=== PATIENT | male | born 1980 | race Caucasian/White ===

== ENCOUNTER 2019-01-13 18:41 | Emergency (ER) | payer BC ==
[~2019-01-13] VITALS: Ht 172.7 cm; Wt 99.8 kg
[2019-01-13 18:42] VITALS: Ht 172.7 cm; Wt 99.8 kg
[2019-01-13 19:40] LABS: BASOPHIL % 0.5 % (0-2); PLATELET COUNT 257 x10^3mcL (130-400)
[2019-01-13 19:42] LABS: RED CELL DISTRIBUTION WIDTH 16.3 % (11.5-14.5)
[2019-01-13 20:01] LABS: microscopic required? NO
[2019-01-13 20:27] LABS: CARBON DIOXIDE 29.4 mmol/L (21-32); CHLORIDE SERUM 101 mmol/L (98-107); CREATININE SERUM 1.2 mg/dL (0.7-1.3); GFR1 > 60 mL/min; GLUCOSE SERUM 166 mg/dL (74-106); POTASSIUM SERUM 3.8 mmol/L (3.5-5.1); SODIUM SERUM 139 mmol/L (136-145)
[2019-01-13 20:39] LABS: ALKALINE PHOSPHATASE 120 U/L (46-116); ALT/SGPT 30 U/L (16-63); AST/SGOT 26 U/L (15-37); BILIRUBIN TOTAL 0.3 mg/dL (0.20-1.00); LIPASE 230 IU/L (73-393); MAGNESIUM 2.1 mg/dL (1.8-2.4); T4(THYROXINE) 6.8 ug/dL (4.7-13.3)
[2019-01-13 20:42] LABS: ALBUMIN 3.3 g/dL (3.4-5.0); CHOLESTEROL 215 mg/dL (<200); HDL CHOLESTEROL 61 mg/dL (40-60); TOTAL PROTEIN, SERUM 8.8 g/dL (6.4-8.2)
[2019-01-13 21:26] LABS: UA SPECIFIC GRAVITY 1.025 (1.005-1.035); urine erythrocyte NEGATIVE (NEGATIVE)
[2019-01-13 21:38] LABS: AMPHETAMINE QUAL UR NONE DETECTED (See below)
[2019-01-13 22:00] VITALS: BP 124/86
== END 2019-01-13 22:00 | disposition left against medical advice (07) ==
LOC: ED 18:41
PROVIDERS: Emergency Medicine
DX: S09.90XA Unspecified injury of head, initial encounter (principal); R55 Syncope and collapse; E11.9 Type 2 diabetes mellitus without complications; E03.9 Hypothyroidism, unspecified; Q90.9 Down syndrome, unspecified; E66.01 Morbid (severe) obesity due to excess calories; Z88.0 Allergy status to penicillin; W18.30XA Fall on same level, unspecified, initial encounter; Y93.89 Activity, other specified; Y92.511 Restaurant or cafe as the place of occurrence of the external cause; Y99.8 Other external cause status
CPT/HCPCS: G0480; J7030; Q0092